=== PATIENT | male | born 1995 | race Caucasian/White ===

== ENCOUNTER 2024-10-16 20:16 | Emergency (ER) | payer MEDICAID, SELFPAY ==
[2024-10-16 20:19] VITALS: BP 114/81; PULSE 93; RESP 20; O2SAT 95
--- NOTE | 2024-10-16 21:05 | ED.GENADUL_ITS ---
Discharge Plan Disposition Patient Disposition: [facility] Condition: Improving Discharge Details Chief Complaint: DrugWithdr/MAT Clinical Impression: Alcohol intoxication ED Provider: Guerrero Bullock Discharge Instructions Instructions: Alcohol Intoxication ED Discharge Data Discharge Physician: Guerrero Bullock [facility] General Date/Time Provider Initiated Documentation: 10/16/24 20:24 . HPI Narrative: Patient presents here brought in by the police officers for he has been drinking beer and wine and was arrested and they needed medical clearance for him to go back to the alcohol retention facility. Denies any other drug use and has no complaints General Stated Complaint: DrugWithdr/MAT KRISTEN: 4 Review of Systems Narrative: Review of Systems: Constitutional: No fevers, chills, sweats Eye: No recent visual problems ENT: No ear pain, nasal congestion, sore throat Respiratory: No shortness of breath, cough Cardiovascular: No Chest pain, palpitations, syncope Gastrointestinal: No nausea, vomiting, diarrhea Genitourinary: No hematuria Jamie/Lymph: Negative for bruising tendency, swollen lymph glands Endocrine: Negative for excessive thirst, excessive hunger Musculoskeletal: No back pain, neck pain, joint pain, muscle pain, decreased range of motion Integumentary: No rash, pruritus, abrasions Neurologic: Alert & oriented X 4 Psychiatric: No anxiety, depression Exam Narrative Exam Narrative: Exam; vitals signs as reported above normal Constitutional; In no acute distress, afebrile General: cooperative, healthy appearing, comfortable and no acute distress HEENT: Head: normal to inspection, no palpable skull fracture and normocephalic atraumatic Eyes: : appearance normal, both eyes and all related structures EOM intact bilaterally Pupils: PERRL : conjunctiva normal Direct ophthalmoscopy: normal light reflex, normal conjunctiva, normal visual acuity Ears: Normal TM, normal external canal Nose: normal no rhinorreha Neck no JVD, supple non tender Neck: normal visual inspection, full ROM and no lymphadenopathy Chest: normal inspection of the chest Respiratory : normal respiratory effort and able to speak in complete sentences no wheezing no rales Cardio Rate: regular rate, rhythm: regular rhythm normal heart sounds S1 and S2 no murmurs, gallops, or rubs GI : normal to inspection, normal bowel sounds, soft, non tender, non distended, no organomegaly Back/Spine/ no CVA tenderness Thoracic/Lumbar Spine: no tenderness or deformities Skin no rashes or lesions Neuro: patient alert oriented x 4 and no meningeal signs, Cranial Nerves: CN's II-XI intact bilaterally, Cognition: normal cognition, Speech: speech normal, Gait: normal gait, Depp tendon reflexes normal 2+ muscle strength 5/5 bilaterally Extremities, no edema, full range of motion, normal strength Course Vital Signs Vital signs: Vital Signs Pulse 93 H 10/16/24 20:19 Respiratory Rate 20 10/16/24 20:19 Blood Pressure 114/81 10/16/24 20:19 Pulse Oximetry 95 10/16/24 20:19 Pulse 93 H 10/16/24 20:19 Respiratory Rate 20 10/16/24 20:19 Blood Pressure 114/81 10/16/24 20:19 Blood Pressure Position Sitting 10/16/24 20:19 Pulse Oximetry 95 10/16/24 20:19 Oxygen Delivery Method Room Air 10/16/24 20:19 Oxygen Flow Rate 0 10/16/24 20:19 Medical Decision Making MDM: Summary: Patient presents to the emergency department brought in by police for medical clearance for inebriation. He seems alert and oriented x 4. He has some alcohol on his breath but at this time he is medically cleared to go back to the police department and to the alcoholic retention facility Data Review Analysis All the data on this patient was reviewed by me including laboratory and imaging studies as well as bedside studies performed by me Independent review of Studies Imaging Lab: Risk Stratification: Patient will be back to the alcohol retention facility Differential Diagnosis: 1. Alcohol intoxication 2. 3. 4. 5. Consultants: Shared disposition: Patient please offered to send this patient will do accordingly Impression: Medical Records Medical records reviewed: Yes I reviewed the patient's medical records. Quality:SDOH Health Related Social Needs: No Data to Display PFSH All Active Problems (Updated 10/16/24 @ 21:14 by Guerrero Bullock MD) Alcohol intoxication (Acute) Social History Smoking/Tobacco Use Status: Never Smoking risk assessment performed?: Yes Alcohol Intake: current Alcohol Intake frequency: 0-2 drinks per day Alcohol type: beer PAWSS Have you Been Recently Intoxicated or Drunk Within the Last 30 days?: No Have you Ever Experienced Previous Episodes of Alcohol Withdrawal?: No Have you ever Experienced Withdrawal Seizures?: No Have you ever Experienced Delirium Tremens(DT)s?: No Have you ever undergone Alcohol Rehabilitation Treatment (i.e, inpt ot outpatient treatment programs)?: No Have you ever Experienced Blackouts?: No Have you ever Combined Alcohol with other Downers within the last 90 days?: No Have you ever Combined Alcohol with any other Substance of Abuse during the last 90 days?: No Positive Blood Alcohol level on Presentation? [PCS.BAL]: No Evidence of Increased Autonomic Activity (i.e. HR>120, tremor, sweating, agitation, nausea)?: No Result: 0
== END 2024-10-16 21:23 ==
LOC: ER 21:35
PROVIDERS: Emergency Provider Emergency Medicine Emergency Medical Services
DX: F10.120 Alcohol abuse with intoxication, uncomplicated (principal)
CPT/HCPCS: 99282